=== PATIENT | female | born 1985 | race Caucasian/White ===

== ENCOUNTER → 2024-03-31 | Outpatient (CLI) | payer BC ==
[2005-09-25 11:32] VITALS: PULSE 90; TEMP 97.4
[~2024-03-31] MED LIST: 00186-0372-20; ATIVAN 0.50.5 MG/TAB PO; BENADRY; CORDROL20 MG PO; DEPO PROVER150 MG/ML IM; LIDO; LORTAB 5/500 501 TAB PO; NEXPLANON68 MG; NO HOME MEDICATIONS; PENICILLIN V500 MG PO; PHENERGAN W/CO120 ML PO; PHENERMINE; PREDNISONE20 MG PO; VENTOLIN0.09 MG IH; ZITHROMAX Z PA250 MG PO; [UNRECOGNIZED DRUG - OTHER]
== END ==
LOC: MC.RAD 11:08
DX: Z12.31 Encounter for screening mammogram for malignant neoplasm of breast (principal)